=== PATIENT | male | born 1940 | race Caucasian/White ===

== ENCOUNTER 2017-03-27 08:22 | Emergency (ER) | payer MEDICARE ==
[~2017-03-27] VITALS: Ht 193 cm; Wt 97.7 kg
[~2017-03-27 08:22] MED LIST: DESO15CR25 TOP; DPAS20025 PO; KEP500TA PO; KETO120S3 TP; Meclizine Hcl PO; OMEP40CA36 PO; SIMV40TA5 PO
[2017-03-27 08:25] VITALS: BP 178/101; PULSE 77; RESP 16; O2SAT 95
--- NOTE | 2017-03-27 08:37 | ED.REPORT ---
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 The numbness lasted less than five minutes. He denies weakness, headache, vision change, paresthesias, slurred speech, or other symptoms. The patient had a short episode of similar symptoms two weeks ago. He was seen by his PCP recently who recommended he receive a carotid artery US. Nursing Notes Stated Complaint: NUMBNESS ON RT SIDE Chief Complaint: Neuro Symptoms/ Deficits Nursing Notes Reviewed: Yes Allergies: Coded Allergies: No Known Allergies (Verified , 02/17/16) Scheduled Dipyridamole/Aspirin 200-25 mg (Aggrenox 200-25 mg) 1 Each Capsule 1 CAPSULE PO BID (Reported) Levetiracetam (Keppra) 500 Mg Tablet 1,000 MG PO BID (Reported) Omeprazole (Omeprazole) 40 Mg Capsule.dr 40 MG PO DAILY (Reported) Simvastatin (Simvastatin) 40 Mg Tablet 40 MG PO HS (Reported) Scheduled PRN ([Meclizine Hcl]) 25 MG TABLET 25 MG PO TID PRN PRN For Dizziness Desonide (Desonide Cream) 15 Gm Cream..g. 1 APPLIC TOP BID PRN PRN For Itching ( Reported) Miscellaneous Medications Ketoconazole (Ketoconazole) 120 Ml Shampoo 120 ML TP (Reported) General Time Seen by Provider: 08:36 Chief Complaint Numbness Hand right Hx Obtained From: Patient Arrived By: Walk-in Time last known well Yesterday Sudden in Onset?: Yes Context of Onset: During sleep Symptom Duration: 1 - 15 minutes Progression Since Onset: Resolved Severity: Current: No pain currently Severity: Maximum: No pain Context Related History: Reports: Cerebrovascular accident, Seizure disorder Context: Immunizations Unknown Recent Healthcare: No recent doctor visit Similar Sx Previous: Yes Past Medical History Past Medical History 1. CVA November 2007 with resulting diffuse encephalomalacia throughout the right hemisphere. Residual left-sided weakness 2. Resulting seizure disorder from acute stroke. 3. Right carotid endarterectomy January 2008 with shunt and patch. 4. History of shingles. 5. Hyperlipidemia. 6. Peptic ulcer disease. 7. Right inguinal hernia repair. 8. Glaucoma. 9. High cholesterol. 10. Aortic aneurysm s/p repair Past Surgical History Cataract surgery Aortic aneurysm repair Smoking History Former Smoker Ambulatory Status Independent Review of Systems Review of Systems Note: - Paresthesias Constitutional: Denies: Fever Respiratory: Denies: Non-productive cough, Shortness of breath GI: Denies: Diarrhea, Vomiting Neurologic: Reports: Numbness (Right hand), Denies: Headache, Slurred speech, Vision change, Weakness Complete sys rev & neg: except as marked. Physical Exam Initial Vital Signs Vital Signs (First) Date Time Temp Pulse Resp B/P Pulse Ox O2 Delivery O2 Flow Rate FiO2 03/27/17 08:25 36.8 77 16 178/101 95 Room Air Initial VS: Reviewed General/Constitutional: Awake, Alert, No acute distress Head / Eyes: Atraumatic, Normocephalic Neck: Supple, Full range of motion Respiratory / Chest: Breath sounds NL, Breath sounds = bilat, No respiratory distress Cardiovascular: Heart rate NL, Regular rhythm, Heart sounds NL, No murmurs Neurologic: Oriented X3, Speech NL, CN II - XII intact Upper Extremity / MS: Atraumatic Upper Ext Brief Normals: Arm R exam normal, Forearm R exam normal, Wrist R exam normal, Hand R exam normal Right hand neurovascularly intact Interpretation & Diagnostics Lab Results Interpretation Result Diagram: 03/27/17 0855 03/27/17 0855 Test 03/27/17 08:55 White Blood Count 5.2th/mm3 (3.8-10.1) Red Blood Count 4.63mil/mm3 (4.40-5.80) Hemoglobin 14.7g/dL (13.8-17.2) Hematocrit 43.1% (41.0-50.0) Mean Corpuscular Volume 93.1fL (81-100) Mean Corpuscular Hemoglobin 31.7pg (27.0-35.0) Mean Corpuscular Hemoglobin Concent 34.1% (32.0-37.0) Red Cell Distribution Width 12.3% (12.3-15.4) Platelet Count 136bil/L (150-400) Neutrophils (%) (Auto) 70.1% (40-74) Lymphocytes (%) (Auto) 20.6% (14-46) Monocytes (%) (Auto) 7.6% (4-12) Eosinophils (%) (Auto) 1.3% (0-5) Basophils (%) (Auto) 0.2% (0-3) Prothrombin Time 11.3sec (8.1-12.5) Prothromb Time International Ratio 1.05ratio Sodium Level 138mEq/L (134-144) Potassium Level 4.0mEq/L (3.5-5.2) Chloride Level 100mEq/L (97-108) Carbon Dioxide Level 25mmol/L (18-29) Blood Urea Nitrogen 20mg/dL (8-27) Creatinine 1.03mg/dL (0.76-1.27) Estimat Glomerular Filtration Rate 74mL/min (>59) Glucose Level 112mg/dL (60-99) Calcium Level 9.6mg/dL (8.5-10.1) Total Bilirubin 0.4mg/dL (0.0-1.2) Aspartate Amino Transf (AST/SGOT) 20U/L (0-50) Alanine Aminotransferase (ALT/SGPT) 17U/L (0-44) Alkaline Phosphatase 85U/L (25-160) Troponin T < 0.010ug/L (0.0-0.011) Total Protein 7.8g/dL (6.4-8.4) Albumin 4.6g/dL (3.4-5.0) ECG Interpretation ECG Interpretation: Sinus rhythm rate 75 RBBB T-wave inversions in leads V1 and V2, unchanged from previous Time: 08:55 Interpreted by: ED physician CT Head Interpretation IMPRESSION: 1. No acute intracranial hemorrhage. 2. Old right MCA stroke. 3. Chronic small vessel ischemic changes and moderate parenchymal volume loss. Dictated by: Garret Aguila M.D. on 03/27/2017 at 8:11 Study: Head CT no contrast Interpretation / Wet Read by: Interpret - Radiologist Re-Eval/Medical Decision Med Decision/Clinical Course 76-year-old male history of stroke and TIA presenting with right hand numbness this morning. No other associated symptoms. Resolved prior to arrival. Lasted for 5 minutes. He had similar symptoms 2 weeks ago which resolved after 5 minutes. His neurological exam is normal here. Negative Phalen's. CT head is normal. Labs are normal. I discussed the patient he may have had a TIA. However he does not want to be admitted to the hospital. He understands risks of possible . He prefers to follow-up with primary doctor and have his test done as an outpatient. Return precautions given if any recurrent neurological deficits or any other new or worsening symptoms. He is already on Aggrenox. Source of Hx: Old records Re-Evaluation/Progress : Time of Eval: 10:25 Patient Status: Condition improved Re-Evaluation/Progress Note: Discussed with patient CT and lab results, diagnosis, and possibility of admission, which he declines. Discussed plan for discharge. Follow-up and return to the ER instructions given. Patient agrees with plan for care and all questions were addressed. Counseled Regarding: Diagnosis, Need for follow-up, When/why to return to ED Patient Discharge & Departure Impression: Primary Impression: Numbness of right hand Disposition: Home Discharge Condition All VS Reviewed: Yes Condition: Improved Additional Instructions: Thank you for entrusting us with your care. Your CT and lab results were reassuring for any serious illness today. You may have had a TIA but have decided to go home. Call your primary care provider tomorrow for a follow-up appointment. Return to the ER with any new or worsening symptoms including blurred vision, speech changes, numbness, weakness, headache, tingling, or trouble swallowing. Referrals: Wil Gr MD (PCP) Fer Attestation Portions of this note were transcribed by Marcela Rousseau. I, Dr. Aguilar, personally performed the history, physical exam, and medical decision-making; I reviewed and confirmed the accuracy of the information in the transcribed note. Signed by: Fer Youngblood, 03/27/2017, 11:46 copies to: Wil Gr MD, Ben M MD March 27, 2017 08:37 MARCELA ROUSSEAU March 27, 2017 08:45
[2017-03-27 09:07] LABS: BASOPHILS % (AUTO) 0.2 % (0-3); EOSINOPHILS % (AUTO) 1.3 % (0-5); MONOCYTES % (AUTO) 7.6 % (4-12); Mean Corpuscular Hemoglobin 31.7 pg (27.0-35.0); Mean Corpuscular Volume 93.1 fL (81-100); NEUTROPHILS % (AUTO) 70.1 % (40-74); Platelet Count 136 bil/L (150-400)
--- NOTE | 2017-03-27 09:15 | DRSVH ---
PROCEDURE: CT BRAIN WITHOUT CONTRAST ([id number]) INDICATIONS: Stroke TECHNIQUE: Noncontrast 4.5 mm thick angled axial sections acquired from the foramen magnum to the vertex, with c oronal reformats. COMPARISON: [facility], MR, MR STROKE PROTOCOL, 02/18/2016, 14:19. [facility] l, CT, CT BRAIN WO CON, 02/17/2016, 13:41. FINDINGS: Image quality: Diagnostic. Brain: There is no acute intra-axial or extra-axial hemorrhage. No extra-axial fluid collection is i dentified. There is no midline shift or mass effect. The orbits are grossly unremarkable. No large areas of diffusely decreased attenuation are evident within the brain to suggest diffuse cer ebral edema. There is a large area of encephalomalacia involving the right frontal and parietal lobe s, similar to the previous exam, compatible with a chronic right MCA stroke. Additional areas of low -attenuation within the periventricular and deep white matter of the supratentorial brain are also pr esent. The ventricles and cortical sulci are moderately prominent. Bones: Calvarium and visualized facial bones are grossly intact. The imaged paranasal sinuses and m astoid air cells are clear. IMPRESSION: 1. No acute intracranial hemorrhage. 2. Old right MCA stroke. 3. Chronic small vessel ischemic changes and moderate parenchymal volume loss. Dictated by: Garret Aguila M.D. on 03/27/2017 at 8:11 Approved by: Garret Aguila M.D. on 03/27/2017 at 8:13
[2017-03-27 09:22] LABS: INR 1.05 ratio
[2017-03-27 09:31] LABS: TROPONIN T < 0.010 ug/L (0.0-0.011)
[2017-03-27 10:46] VITALS: BP 142/89; PULSE 70; RESP 16; O2SAT 96
== END 2017-03-27 10:52 | disposition home or self-care (01) ==
LOC: SED 08:22
DX: R20.0 Anesthesia of skin (principal); E78.5 Hyperlipidemia, unspecified; Z87.891 Personal history of nicotine dependence; Z86.73 Personal history of transient ischemic attack (TIA), and cerebral infarction without residual deficits